=== PATIENT | female | born 1985 | race Caucasian/White ===

== ENCOUNTER 2018-06-26 23:52 | Emergency (ER) | payer SELFPAY ==
[~2018-06-26] VITALS: Ht 154.9 cm; Wt 45.0 kg
[2018-06-27 03:00] LABS: EOSINOPHILS % 1.8 % (0.0-5.0); HEMATOCRIT. 37.8 % (36.0-48.0); HEMOGLOBIN. 13.2 g/dL (12.0-16.0); MEAN CORPUSCULAR HEMOGLOBIN 31.5 pg (28.0-32.0); MEAN CORPUSCULAR VOLUME 90.6 fL (81.0-99.0); MEAN PLATELET VOLUME 7.9 fl (7.4-10.4); NEUTROPHILS % 59.2 % (40.0-76.0); PLATELET 373 x1000/uL (130-400); RED BLOOD CELL COUNT 4.17 mill/uL (4.2-5.4); RED CELL DISTRIBUTION WIDTH 12.6 % (11.6-14.6)
[2018-06-27 03:06] LABS: CHLORIDE 107 mEq/L (98-107)
[2018-06-27 03:10] LABS: ETHANOL BLOOD < 10 mg/dL
[2018-06-27 06:30] LABS: *BARBITURATES SCREEN URINE NEGATIVE (NEGATIVE); *BENZODIAZEPINES SCREEN URINE NEGATIVE (NEGATIVE); *COCAINE SCREEN URINE NEGATIVE (NEGATIVE)
[2018-06-27 06:31] LABS: METHADONE URINE SCREEN NEGATIVE (NEGATIVE); OPIATES URINE SCREEN NEGATIVE (NEGATIVE); PHENCYCLIDINE URINE SCREEN NEGATIVE (NEGATIVE)
[2018-06-27 06:33] LABS: *AMPHETAMINES SCREEN URINE PRESUMTIVE POSITIVE (NEGATIVE); CANNABINOID URINE SCREEN PRESUMTIVE POSITIVE (NEGATIVE)
[2018-06-27 09:09] LABS: CLARITY URINE CLEAR (CLEAR); COLOR URINE DARK YELLOW (YELLOW); KETONES URINE TRACE (NEGATIVE); LEUKOCYTE ESTERASE URINE TRACE (NEGATIVE); NITRITE URINE NEGATIVE (NEGATIVE); OCCULT BLOOD URINE 3+ (NEGATIVE); PH URINE 5.5 (4.5-8.0); PROTEIN URINE TRACE (NEGATIVE)
[2018-06-27 15:40] VITALS: BP 122/76
== END 2018-06-27 16:19 | disposition home or self-care (01) ==
LOC: EDSEX 23:52 → ER 23:52
DX: F15.129 Other stimulant abuse with intoxication, unspecified (principal); F12.129 Cannabis abuse with intoxication, unspecified; F20.9 Schizophrenia, unspecified; N39.0 Urinary tract infection, site not specified; R45.851 Suicidal ideations; Z59.0 Homelessness
CPT/HCPCS: 36415; 80048; 80305; 80307; 80320; 80329; 81003; 85025; 99283; Z7610; G0480